=== PATIENT | female | born 1985 | race Two or more races ===

== ENCOUNTER 2016-08-25 16:53 | Emergency (ER) | payer OTHER ==
--- NOTE | ~2016-08-25 | CR142 ---
[facility] A Service [facility] RADIOLOGY TEXT RESULTS PATIENT: MITA LAYTON LOCATION: [facility] : 87 UNIT #: [id number] AGE: [address]: Lenore Sharpe APRN SEX: F ORDER DR: [id number] [place], [place] [address] [id number] MR#: [id number] Acc #: [id number] NAME: MITA LAYTON : 1985 SEX: F STUDY DATE/TIME: 08/25/2016 17:09 UNIT: [facility] ROOM: STUDY DESCRIPTION: CR Hand Min 3 Views Rt Attending Physician: Lenore Sharpe A.P.R.N. Ordering Physician: Ed Doctor [id number] [facility] Primary Care Physician: Primary Care Physician No MEDICAL IMAGING REPORT This report is preliminary unless electronic signature is present EXAM Right hand, 08/25/2016 HISTORY 31-year-old female with right hand pain and swelling after moving furniture 2 days ago. COMPARISON None. FINDINGS Three views of the right hand demonstrate a mildly displaced articular fracture involving the base of the fifth metacarpal. No dislocation. No other acute fractures are seen. Mild soft tissue swelling around the hand. IMPRESSION Mildly displaced articular fracture of the base of the fifth metacarpal. No dislocation. Dictated by... Wilfred Braswell M.D. THIS IS AN ELECTRONICALLY VERIFIED REPORT Wilfred Braswell M.D. at 08/26/2016 10:24 AM GEMA/jere TD: 08/25/2016 18:01 JOB #: [id number] MEDICAL IMAGING REPORT [facility] A Service [facility] RADIOLOGY TEXT RESULTS PATIENT: MITA LAYTON LOCATION: [facility] : 87 UNIT #: [id number] AGE: [address]: Lenore Sharpe APRN SEX: F ORDER DR: Page 1 of 1 COPY
== END 2016-08-25 19:10 | disposition home or self-care (01) ==
LOC: CFTX 16:53 → CED 16:53 → CFTX 18:44
DX: S62.316A Displaced fracture of base of fifth metacarpal bone, right hand, initial encounter for closed fracture (principal); W20.8XXA Other cause of strike by thrown, projected or falling object, initial encounter; Y92.009 Unspecified place in unspecified non-institutional (private) residence as the place of occurrence of the external cause
CPT/HCPCS: 29125; 73130; 99283